=== PATIENT | male | born 2000 | race Two or more races ===

== ENCOUNTER 2022-01-09 19:20 | Emergency (ER) | payer OTHER ==
[~2022-01-09] VITALS: Ht 172.7 cm; Wt 136.1 kg
[2022-01-09 20:52] VITALS: BP 146/85
--- NOTE | 2022-01-09 21:24 | NUR ---
Patient discharged to home in stable condition. Written and verbal after care instructions given. Patient verbalizes understanding of instruction.
== END 2022-01-09 21:26 | disposition home or self-care (01) ==
LOC: ER 19:43
DX: T23.152A Burn of first degree of left palm, initial encounter (principal); X19.XXXA Contact with other heat and hot substances, initial encounter; Y93.89 Activity, other specified; Y92.89 Other specified places as the place of occurrence of the external cause; Y99.8 Other external cause status